=== PATIENT | female | born 1955 | race American Indian/Alaskan Native ===

== ENCOUNTER 2017-07-20 07:49 | Emergency (ER) | payer OTHER ==
[2017-07-20 08:07] VITALS: RESP 18; TEMP 97.5; O2SAT 99; BMI 25.0
--- NOTE | 2017-07-20 09:29 | RAD ---
PROCEDURE: BILATERAL SHOULDER RADIOGRAPHS HISTORY: r/o fx COMPARISON: None available TECHNIQUE: Three views of the shoulder been submitted for evaluation of fracture. FINDINGS: No acute fracture or destructive bony lesion identified bilaterally. There is no subluxation or dislocation including the bilateral acromioclavicular and glenohumeral joints. No destructive bony lesion is appreciated bilaterally. Limited degenerative changes are identified in the bilateral sacroiliac acromioclavicular and glenohumeral joints. Evidence of limited calcific tendinopathy left shoulder. IMPRESSION: No acute fracture or dislocation bilaterally. Calcific tendinopathy left shoulder. Mild degenerative change bilaterally.
--- NOTE | 2017-07-20 09:32 | ED PDOC ---
Arrival/HPI - General Chief Complaint: Trauma Time Seen by Provider: 07/20/17 08:19 Historian: Patient - History of Present Illness Narrative History of Present Illness (Text): 07/20/17 13:17 Bita Garces is a 62 year old female, with no significant past medical history, who presents to the emergency department complaining of bilateral shoulder pain s/p fall. Patient slipped and fell on her shoulders while walking. Patient denies any head injury, LOC, fevers, chills, chest pain, shortness of breath, abdominal pain, nausea, vomiting, diarrhea, back pain, neck pain, headache, dizziness, or any other complaint. Time/Duration: Other (today) Symptom Course: Unchanged Activities at Onset: Light Context: Walking Past Medical History - Provider Review Nursing Documentation Reviewed: Yes - Reproductive Menopause: Yes - Cardiac Hx Hypertension: Yes - Pulmonary Hx Respiratory Disorders: No - Endocrine/Metabolic Hx Diabetes Mellitus Type 2: Yes - Psychiatric Hx Substance Use: No - Anesthesia Hx Anesthesia: No Family/Social History - Physician Review Nursing Documentation Reviewed: Yes Family/Social History: Unknown Family HX Smoking Status: Unknown If Ever Smoked Hx Alcohol Use: No Hx Substance Use: No Allergies/Home Meds Allergies/Adverse Reactions: Allergies No Known Allergies Allergy (Unverified 07/20/17 08:20) Home Medications: Home Meds Medication Instructions Recorded Confirmed MetFORMIN [glucOPHAGE] 1,000 mg PO BID 07/20/17 07/20/17 Valsartan/Hydrochlorothiazide 1 tab PO DAILY 07/20/17 07/20/17 [Valsartan and Hydrochlorothiazide 25 mg-320 M] Review of Systems - Physician Review All systems were reviewed & negative as marked: Yes - Review of Systems Constitutional: Normal Eyes: Normal ENT: Normal Respiratory: Normal. absent: SOB, Cough Cardiovascular: Normal. absent: Chest Pain, Palpitations Gastrointestinal: Normal. absent: Abdominal Pain, Diarrhea, Nausea, Vomiting Genitourinary Female: Normal. absent: Dysuria, Frequency, Hematuria, Urine Output Changes Musculoskeletal: Other (Bilateral shoulder pain). absent: Back Pain, Neck Pain Skin: Normal. absent: Rash Neurological: Normal. absent: Headache, Dizziness Endocrine: Normal Hemo/Lymphatic: Normal Psychiatric: Normal Physical Exam Vital Signs Reviewed: Yes Vital Signs Temp Pulse Resp BP Pulse Ox 07/20/17 10:30 66 18 144/80 99 07/20/17 08:06 97.5 F L 63 18 163/92 H 99 Temperature: Afebrile Blood Pressure: Normal Pulse: Regular Respiratory Rate: Normal Appearance: Positive for: Well-Appearing, Non-Toxic, Comfortable Pain Distress: None Mental Status: Positive for: Alert and Oriented X 3 Finger Stick Blood Glucose: 167 - Systems Exam Head: Present: Atraumatic, Normocephalic Pupils: Present: PERRL Extroacular Muscles: Present: EOMI Conjunctiva: Present: Normal Mouth: Present: Moist Mucous Membranes Neck: Present: Normal Range of Motion. No: Meningeal Signs, MIDLINE TENDERNESS , JVD Respiratory/Chest: Present: Clear to Auscultation, Good Air Exchange. No: Respiratory Distress, Accessory Muscle Use Cardiovascular: Present: Regular Rate and Rhythm, Normal S1, S2. No: Murmurs Abdomen: Present: Normal Bowel Sounds. No: Tenderness, Distention, Peritoneal Signs Back: Present: Normal Inspection. No: CVA Tenderness, Midline Tenderness, Paraspinal Tenderness Upper Extremity: Present: Tenderness (diffused tenderness bilateral shoulders). No: Cyanosis, Edema Lower Extremity: Present: Normal Inspection. No: Edema Neurological: Present: GCS=15, CN II-XII Intact, Speech Normal Skin: Present: Warm, Dry, Normal Color. No: Rashes Psychiatric: Present: Alert, Oriented x 3, Normal Insight, Normal Concentration Medical Decision Making ED Course and Treatment: 07/20/17 09:31 Impression: 62 year old female who presents to the emergency department complaining of bilateral shoulder pain s/p fall. Plan: -- Xray Bilateral shoulders -- Flexeril -- Motrin -- Reassess and disposition Progress Notes: Xray Bilateral Shoulder: No acute fracture or destructive bony lesion identified bilaterally. There is no subluxation or dislocation including the bilateral acromioclavicular and glenohumeral joints. No destructive bony lesion is appreciated bilaterally. Limited degenerative changes are identified in the bilateral sacroiliac acromioclavicular and glenohumeral joints. Evidence of limited calcific tendinopathy left shoulder. IMPRESSION: No acute fracture or dislocation bilaterally. Calcific tendinopathy left shoulder. Mild degenerative change bilaterally. - Lab Interpretations Lab Results: Lab Results 07/20/17 08:09: POC Glucose (mg/dL) 167 H - RAD Interpretation Radiology Orders: 07/20/17 08:20 SHOULDER MIN 2 VIEWS BI [RAD] Stat - Medication Orders Current Medication Orders: Discontinued Medications Cyclobenzaprine HCl (Flexeril) 10 mg PO STAT STA Stop: 07/20/17 08:22 Last Admin: 07/20/17 08:41 Dose: 10 mg Ibuprofen (Motrin Tab) 600 mg PO STAT STA Stop: 07/20/17 08:22 Last Admin: 07/20/17 08:41 Dose: 600 mg [facility] Pain/Vitals Document 07/20/17 08:41 SZA (Rec: 07/20/17 08:41 SZA [id number]) Pain Reassessment Is This A Pain ReAssessment? No Sleep Is patient sleeping during reassessment? No Presence of Pain Presence of Pain Yes Re-Assess: [facility] Pain/Vitals Document 07/20/17 09:41 SZA (Rec: 07/20/17 11:10 [id number]) Pain Reassessment Is This A Pain ReAssessment? Yes Sleep Is patient sleeping during reassessment? No Presence of Pain Presence of Pain Yes Pain Scale Used Pain Scale Used Numeric Location Intensity 4 Scale Used Numeric - Scribe Statement The provider has reviewed the documentation as recorded by the Scribsaray Bravo All medical record entries made by the Scribsaray were at my direction and personally dictated by me. I have reviewed the chart and agree that the record accurately reflects my personal performance of the history, physical exam, medical decision making, and the department course for this patient. I have also personally directed, reviewed, and agree with the discharge instructions and disposition. Disposition/Present on Arrival - Present on Arrival Any Indicators Present on Arrival: No History of DVT/PE: No History of Uncontrolled Diabetes: No Urinary Catheter: No History of Decub. Ulcer: No History Surgical Site Infection Following: None - Disposition Have Diagnosis and Disposition been Completed?: Yes Diagnosis: Acute pain of both shoulders Disposition: HOME/ ROUTINE Disposition Time: 09:30 Condition: IMPROVED Discharge Instructions (ExitCare): Shoulder Pain (DC) Additional Instructions: Thank you for letting us take care of you today. The emergency medical care you received today was directed at your acute symptoms. If you were prescribed any medication, please fill it and take as directed. It may take several days for your symptoms to resolve. Return to the Emergency Department if your symptoms worsen, do not improve, or if you have any other problems. Please contact your doctor or call one of the physicians/clinics you have been referred to that are listed on the Patient Visit Information form that is included in your discharge packet. Bring any paperwork you were given at discharge with you along with any medications you are taking to your follow up visit. Our treatment cannot replace ongoing medical care by a primary care provider (PCP) outside of the emergency department. Thank you for allowing the [facility] team to be part of your care today. Follow up with your doctor in 2-3 days. Prescriptions: Cyclobenzaprine [Cyclobenzaprine HCl] 10 mg PO Q8 PRN #20 tab PRN Reason: Muscle Spasm Ibuprofen [Motrin] 600 mg PO Q6 PRN #20 tab PRN Reason: Pain, Moderate (4-7) Referrals: [facility], [Non-Staff] - Follow up with primary Forms: [facility] (Bhutanese)
[2017-07-20 11:08] VITALS: BP 144/80; PULSE 66
== END 2017-07-20 11:18 | disposition home or self-care (01) ==
LOC: ED 07:49
DX: M25.511 Pain in right shoulder (principal); M25.512 Pain in left shoulder; E11.9 Type 2 diabetes mellitus without complications; I10 Essential (primary) hypertension